=== PATIENT | male | born 1975 | race Caucasian/White ===

== ENCOUNTER 2024-07-27 12:30 | Outpatient (CLI) | payer MEDICAID, SELFPAY ==
--- NOTE | 2024-07-27 12:31 | CT_ITS ---
FINAL REPORT TECHNIQUE: CT of the sinuses was performed with and without the administration of intravenous contrast using axial images. Sagittal and coronal multiplanar reconstructions were performed. This study was performed with techniques to keep radiation doses as low as reasonably achievable (ALARA). Individualized dose reduction techniques using automated exposure control or adjustment of mA and/or kV according to the patient's size were employed. CLINICAL HISTORY: pansinusitis COMPARISON: None FINDINGS: CT SINUSES: CT of the sinuses was performed with and without intravenous contrast. There are air-fluid levels in the bilateral maxillary sinuses consistent with acute sinusitis. There is partial opacification of the ethmoid air cells, predominantly the anterior ethmoid air cells. There is minimal mucosal thickening of the posterior wall of the right frontal sinus. Frontal and sphenoid sinuses are otherwise clear. There is minimal septal deviation to the right. There is narrowing of the bilateral ostiomeatal complexes, secondary to mucosal thickening. Polypoid mass in the posterior left nasal air passage, 22 x 8 x 17 mm in size. No enhancing masses noted in the facial soft tissues. IMPRESSION: 1. Significant ethmoid and maxillary sinusitis 2. Narrowing of the bilateral ostiomeatal complexes secondary to mucosal thickening. 3. Left nasal passage polypoid mass as described. Recommend correlation with direct visualization. Reviewed, Interpreted and Dictated by Odette Caban MD Transcribed by Laquita Jiang Authenticated and [facility]
[2024-07-27 13:01] LABS: Blood Urea Nitrogen 14 mg/dl (9-20); Estimated Glomerular Filt Rate 80 ml/min (>60); GFR (African American) 97 ML/MIN (>60)
[2024-07-27] MEDS: IOPAMIDOL-370 (76%);100ML BOTTLE 100 ML IV (13:24)
[2024-07-27] MEDS: SODIUM CHLORIDE 0.9% 10ML SYR (RAD ONLY) 10 ML IV (13:24)
== END 2024-07-27 23:59 | disposition home or self-care (01) ==
LOC: RAD 12:31
PROVIDERS: PCP Nurse Practitioner; Visit Provider Nurse Practitioner
DX: J32.4 Chronic pansinusitis (principal)
CPT/HCPCS: 36415; 70488; 82565; 84520; Q9967